=== PATIENT | male | born 1970 | race Caucasian/White ===

== ENCOUNTER 2017-07-28 08:16 | Inpatient (IN) | payer MEDICAID ==
[~2017-07-28] VITALS: Ht 170.2 cm; Wt 66.3 kg
[2017-07-28] VITALS (37 sets, daily range): BP systolic 71–163; BP diastolic 43–121
[~2017-07-28 08:16] MED LIST: ETOMIDATE 2MG/ML 10ML VIAL IV ONE; SUCCINYLCHOLINE CHLORIDE 200MG/10ML VIAL IV ONE
[2017-07-28] MEDS ORDERED: METO5TAB86 PO (08:24)
[2017-07-28] MEDS ORDERED: METO-396 PO (08:24)
[2017-07-28] MEDS ORDERED: KEPP500 PO (08:24)
[2017-07-28] MEDS ORDERED: LOV40 SQ (08:24)
[2017-07-28] MEDS ORDERED: ACETAMINOPHEN 325MG TABLET GT STA (08:32)
[2017-07-28] MEDS ORDERED: VANCOMYCIN 1 G PREMIX 200 ML IV SCH (08:45)
[2017-07-28] MEDS ORDERED: LEVETIRACETAM 500MG PREMIX 100 ML IV ONE (08:45)
[2017-07-28] MEDS ORDERED: LORAZEPAM 2MG/ML CPJ IV ONE ×3 (08:45→12:30)
[2017-07-28] MEDS ORDERED: SODIUM CHLORIDE 0.9% 1000ML BAG (SEPSIS BOLUS) IV ONE (08:45)
[2017-07-28] MEDS ORDERED: OSELTAMIVIR 75MG CAPSULE GT ONE (08:45)
[2017-07-28] MEDS ORDERED: LEVOFLOXACIN 750MG PREMIX 150 ML IV ONE (08:45)
[2017-07-28 09:03] LABS: BASOPHILS % 0.5 % (0.0-2.0); EOSINOPHILS % 0.3 % (0.0-5.0); HEMATOCRIT. 38.8 % (42.0-52.0); HEMOGLOBIN. 13.2 g/dL (14.0-18.0); LYMPHOCYTES % 9.8 % (20.0-50.0); MEAN CORPUSCULAR HEMOGLOBIN 31.4 pg (28.0-32.0); MEAN PLATELET VOLUME 8.3 fl (7.4-10.4); MONOCYTES % 7.3 % (2.0-8.0); NEUTROPHILS % 82.1 % (40.0-76.0); PLATELET 342 x1000/uL (130-400); RED BLOOD CELL COUNT 4.22 mill/uL (4.7-6.1); RED CELL DISTRIBUTION WIDTH 15.4 % (11.6-14.6)
[2017-07-28 09:16] LABS: INR 1.1; PARTIAL THROMBOPLASTIN TIME 29.8 sec (23.4-31.0); PROTHROMBIN TIME 11.4 sec (9.4-11.6)
[2017-07-28 09:20] LABS: CARBON DIOXIDE 25 mEq/L (21-32); CHLORIDE 106 mEq/L (98-107); TROPONIN I < 0.02 ng/mL (0.00-0.04)
[2017-07-28 09:30] LABS: CLARITY URINE CLEAR (CLEAR); COLOR URINE YELLOW (YELLOW); KETONES URINE NEGATIVE (NEGATIVE); LEUKOCYTE ESTERASE URINE NEGATIVE (NEGATIVE); NITRITE URINE NEGATIVE (NEGATIVE); OCCULT BLOOD URINE NEGATIVE (NEGATIVE); PROTEIN URINE NEGATIVE (NEGATIVE); SPECIFIC GRAVITY URINE 1.023 (1.005-1.030); UROBILINOGEN URINE 0.2 E.U./dL (0.2-1.0)
[2017-07-28 11:35] LABS: BG BASE EXCESS -4.8 mmol/L (-2.0-2.0); BG CARBOXYHEMOGLOBIN 0.5 % (0.5-1.5); BG DEOXYHEMOGLOBIN 8.4 % (0.0-5.0); BG HCO3 ACT 19.6 mmol/L (22.0-26.0); BG METHEMOGLOBIN 0.1 % (0.0-1.5); BG OXYGEN SATURATION 91.5 % (92.0-98.5); BG PCO2 34.4 mmHg (35.0-45.0); BG PH 7.373 (7.350-7.450); BG PO2 60.5 mmHg (75.0-100.0); BG SAMPLE SITE RIGHT RADIAL; BG TOTAL HEMOGLOBIN 13.5 g/dL (12.0-18.0); BG VENT MODE NASAL CANNULA
[2017-07-28] MEDS ORDERED: ETOMIDATE 2MG/ML 10ML VIAL IV ONE (13:00)
[2017-07-28] MEDS ORDERED: PROPOFOL 200MG/20ML VIAL IV ONE (13:00)
[2017-07-28] MEDS ORDERED: SUCCINYLCHOLINE CHLORIDE 200MG/10ML VIAL IV ONE (13:00)
[2017-07-28] MEDS ORDERED: PROPOFOL 10MG/ML 100ML 100 ML IV SCH (13:15)
[2017-07-28] MEDS ORDERED: METRONIDAZOLE 500 MG PREMIX 100 ML IV ONE (13:30)
[2017-07-28 14:04] LABS: BG BASE EXCESS -5.4 mmol/L (-2.0-2.0); BG CARBOXYHEMOGLOBIN 0.5 % (0.5-1.5); BG DEOXYHEMOGLOBIN 0.2 % (0.0-5.0); BG HCO3 ACT 18.3 mmol/L (22.0-26.0); BG METHEMOGLOBIN 0.3 % (0.0-1.5); BG OXYGEN SATURATION 99.8 % (92.0-98.5); BG PCO2 30.7 mmHg (35.0-45.0); BG PH 7.393 (7.350-7.450); BG PO2 437.3 mmHg (75.0-100.0); BG SAMPLE SITE RIGHT BRACHIAL; BG TIDAL VOLUME(mL) 500 mL; BG VENT MODE VENT - A/C; BG VENT RATE 14 set
[2017-07-28] MEDS ORDERED: PROPOFOL 10MG/ML 100ML 100 ML IV PRN (15:30)
[2017-07-28] MEDS ORDERED: IPRATROPIUM/ALBUTEROL 0.5-3(2.5)MG/3ML NEB HHN PRN ×2 (15:30→15:45)
[2017-07-28] MEDS ORDERED: LIDOCAINE HCL 1% 20ML VIAL (Pyxis) INJ ONE (15:52)
[2017-07-28] MEDS ORDERED: SODIUM BICARBONATE 4% (2.4MEQ) 5ML VIAL IV ONE (15:52)
[2017-07-28] MEDS ORDERED: PHENYTOIN SODIUM 1,000 MG in SODIUM CHLORIDE 0.9% 100 ML IV NR (16:00)
[2017-07-28] MEDS ORDERED: IPRATROPIUM/ALBUTEROL 0.5-3(2.5)MG/3ML NEB HHN SCH ×2 (16:00)
[2017-07-28 16:54] LABS: CREATINE KINASE 170 IU/L (39-308)
[2017-07-28 16:57] LABS: CARBAMAZEPINE < 0.5 ug/mL (4-12); VALPROIC ACID < 3.0 ug/mL (50-100)
[2017-07-28] MEDS ORDERED: DEXTROSE 50% WATER 50ML SYRINGE IV PRN (17:00)
[2017-07-28] MEDS ORDERED: NOREPINEPHRINE 8 MG in DEXT 5% WATER 242 ML IV PRN (17:00)
[2017-07-28] MEDS ORDERED: LEVOFLOXACIN 750MG PREMIX 150 ML IV SCH (17:00)
[2017-07-28] MEDS ORDERED: INSULIN LISPRO 100 UNITS/ML SUBCUT SCH (17:00)
[2017-07-28] MEDS ORDERED: IPRATROPIUM/ALBUTEROL 0.5-3(2.5)MG/3ML NEB INH PRN (17:00)
[2017-07-28] MEDS ORDERED: BLOOD SUGAR DIAGNOSTIC STRIP TEST SCH (17:00)
[2017-07-28] MEDS ORDERED: SODIUM CHLORIDE 0.9% 500 ML IV NR (17:15)
[2017-07-28] MEDS: DEXT 5%/0.45% NACL 1000ML 1,000 ML IV SCH (17:45)
[2017-07-28] MEDS: IPRATROPIUM/ALBUTEROL 0.5-3(2.5)MG/3ML NEB HHN SCH ×2 (19:54→23:48)
[2017-07-28] MEDS: LEVETIRACETAM 500MG PREMIX 100 ML IV SCH (20:26)
[2017-07-28] MEDS: PROPOFOL 10MG/ML 100ML 100 ML IV PRN (20:29)
[2017-07-28] MEDS ORDERED: VANCOMYCIN 1,750 MG in DEXT 5% WATER 250 ML IV NR (21:00)
[2017-07-28] MEDS: PHENYTOIN SODIUM 100MG/2ML VIAL IV SCH (22:45)
[2017-07-28] MEDS: BLOOD SUGAR DIAGNOSTIC STRIP TEST SCH (23:29)
[2017-07-28] MEDS: INSULIN LISPRO 100 UNITS/ML SUBCUT SCH (23:30)
[2017-07-28] MEDS: LORAZEPAM 2MG/ML CPJ IV PRN (23:49)
[2017-07-29] VITALS (93 sets, daily range): BP systolic 80–137; BP diastolic 54–89
[2017-07-29] MEDS: DEXT 5%/0.45% NACL 1000ML 1,000 ML IV SCH ×3 (03:24→23:56)
[2017-07-29] MEDS: IPRATROPIUM/ALBUTEROL 0.5-3(2.5)MG/3ML NEB HHN SCH ×6 (03:46→23:54)
[2017-07-29 05:36] LABS: CARBON DIOXIDE 19 mEq/L (21-32); CHLORIDE 111 mEq/L (98-107)
[2017-07-29 05:38] LABS: BASOPHILS % 0.2 % (0.0-2.0); EOSINOPHILS % 0.4 % (0.0-5.0); HEMATOCRIT. 31.1 % (42.0-52.0); HEMOGLOBIN. 11.1 g/dL (14.0-18.0); LYMPHOCYTES % 7.7 % (20.0-50.0); MEAN CORPUSCULAR VOLUME 92.5 fL (80.0-94.0); MEAN PLATELET VOLUME 8.8 fl (7.4-10.4); MONOCYTES % 4.9 % (2.0-8.0); NEUTROPHILS % 86.8 % (40.0-76.0); PLATELET 279 x1000/uL (130-400); RED BLOOD CELL COUNT 3.36 mill/uL (4.7-6.1)
[2017-07-29] MEDS: BLOOD SUGAR DIAGNOSTIC STRIP TEST SCH ×2 (05:48→12:14)
[2017-07-29] MEDS: PHENYTOIN SODIUM 100MG/2ML VIAL IV SCH ×3 (05:50→23:56)
[2017-07-29] MEDS: VANCOMYCIN 1250MG in DEXTROSE 5% WATER 250ML IV SCH ×3 (05:51→22:00)
[2017-07-29] MEDS: INSULIN LISPRO 100 UNITS/ML SUBCUT SCH ×2 (06:00→12:00)
[2017-07-29 08:55] LABS: BG BASE EXCESS -2.8 mmol/L (-2.0-2.0); BG CARBOXYHEMOGLOBIN 0.2 % (0.5-1.5); BG DEOXYHEMOGLOBIN 1.3 % (0.0-5.0); BG FRACTION INSPIRED OXYGEN 50; BG HCO3 ACT 21.5 mmol/L (22.0-26.0); BG METHEMOGLOBIN 0.1 % (0.0-1.5); BG OXYGEN SATURATION 98.7 % (92.0-98.5); BG OXYHEMOGLOBIN 98.4 % (94.0-97.0); BG PCO2 35.3 mmHg (35.0-45.0); BG PH 7.402 (7.350-7.450); BG PO2 136.4 mmHg (75.0-100.0); BG SAMPLE SITE RIGHT RADIAL; BG TIDAL VOLUME(mL) 500 mL; BG TOTAL HEMOGLOBIN 11.2 g/dL (12.0-18.0); BG VENT MODE VENT - A/C; BG VENT RATE 14 set
[2017-07-29] MEDS: LEVOFLOXACIN 750MG PREMIX 150 ML IV SCH (09:31)
[2017-07-29] MEDS: PANTOPRAZOLE SODIUM 40 MG/VIAL IV SCH (09:32)
[2017-07-29] MEDS: PROPOFOL 10MG/ML 100ML 100 ML IV PRN ×2 (09:32→19:55)
[2017-07-29] MEDS: LEVETIRACETAM 500MG PREMIX 100 ML IV SCH ×2 (09:33→20:25)
[2017-07-29] MEDS ORDERED: POTASSIUM CHLORIDE 20MEQ/PACKET GT NR (13:00)
[2017-07-30] VITALS (51 sets, daily range): BP systolic 92–164; BP diastolic 53–101
[2017-07-30] MEDS: BLOOD SUGAR DIAGNOSTIC STRIP TEST SCH ×4 (00:01→17:51)
[2017-07-30] MEDS: PROPOFOL 10MG/ML 100ML 100 ML IV PRN ×4 (02:13→21:53)
[2017-07-30 03:26] LABS: VANCOMYCIN TROUGH 42.5 ug/mL (5.0-10.0)
[2017-07-30] MEDS: IPRATROPIUM/ALBUTEROL 0.5-3(2.5)MG/3ML NEB HHN SCH ×5 (04:03→20:28)
[2017-07-30] MEDS: VANCOMYCIN 1250MG in DEXTROSE 5% WATER 250ML IV SCH (04:33)
[2017-07-30] MEDS: INSULIN LISPRO 100 UNITS/ML SUBCUT SCH ×4 (06:00→17:53)
[2017-07-30] MEDS: PHENYTOIN SODIUM 100MG/2ML VIAL IV SCH ×3 (06:58→22:45)
[2017-07-30] MEDS: LEVETIRACETAM 500MG PREMIX 100 ML IV SCH ×2 (07:39→20:22)
[2017-07-30] MEDS: PANTOPRAZOLE SODIUM 40 MG/VIAL IV SCH (08:39)
[2017-07-30] MEDS: LEVOFLOXACIN 750MG PREMIX 150 ML IV SCH (09:00)
[2017-07-30 09:15] LABS: BG BASE EXCESS -1.4 mmol/L (-2.0-2.0); BG CARBOXYHEMOGLOBIN 0.3 % (0.5-1.5); BG DEOXYHEMOGLOBIN 1.2 % (0.0-5.0); BG FRACTION INSPIRED OXYGEN 50; BG METHEMOGLOBIN 0.2 % (0.0-1.5); BG OXYGEN SATURATION 98.8 % (92.0-98.5); BG OXYHEMOGLOBIN 98.3 % (94.0-97.0); BG PCO2 37.6 mmHg (35.0-45.0); BG PH 7.405 (7.350-7.450); BG PO2 144.6 mmHg (75.0-100.0); BG SAMPLE SITE RIGHT RADIAL; BG TIDAL VOLUME(mL) 500 mL; BG TOTAL HEMOGLOBIN 11.4 g/dL (12.0-18.0); BG VENT MODE VENT - A/C; BG VENT RATE 14 set
[2017-07-30] MEDS ORDERED: PROPOFOL 10MG/ML 100ML 100 ML IV PRN (10:12)
[2017-07-30] MEDS: LORAZEPAM 2MG/ML CPJ IV PRN (10:22)
[2017-07-30] MEDS ORDERED: POTASSIUM CHLORIDE 20MEQ/PACKET GT NR (10:38)
[2017-07-30] MEDS: DEXT 5%/0.45% NACL 1000ML 1,000 ML IV SCH ×2 (10:44→20:22)
[2017-07-30] MEDS: METOCLOPRAMIDE 10MG/10 ML UDC GT SCH ×3 (12:19→23:10)
[2017-07-30] MEDS: DOCUSATE SODIUM SUGAR FREE 100MG/10ML UDC NG SCH (12:26)
[2017-07-30] MEDS: VANCOMYCIN 1 G PREMIX 200 ML IV SCH (23:10)
[2017-07-31] VITALS (24 sets, daily range): BP systolic 117–158; BP diastolic 75–100
[2017-07-31] MEDS: IPRATROPIUM/ALBUTEROL 0.5-3(2.5)MG/3ML NEB HHN SCH ×6 (00:22→21:08)
[2017-07-31] MEDS: PHENYTOIN SODIUM 100MG/2ML VIAL IV SCH ×3 (05:53→21:33)
[2017-07-31] MEDS: METOCLOPRAMIDE 10MG/10 ML UDC GT SCH ×4 (05:53→23:19)
[2017-07-31] MEDS: INSULIN LISPRO 100 UNITS/ML SUBCUT SCH ×4 (06:00→17:34)
[2017-07-31] MEDS: BLOOD SUGAR DIAGNOSTIC STRIP TEST SCH ×4 (06:36→17:33)
[2017-07-31] MEDS: PROPOFOL 10MG/ML 100ML 100 ML IV PRN ×3 (06:54→19:51)
[2017-07-31] MEDS: DEXT 5%/0.45% NACL 1000ML 1,000 ML IV SCH (07:03)
[2017-07-31] MEDS: PANTOPRAZOLE SODIUM 40 MG/VIAL IV SCH (08:12)
[2017-07-31] MEDS: LEVETIRACETAM 500MG PREMIX 100 ML IV SCH (08:12)
[2017-07-31] MEDS: DOCUSATE SODIUM SUGAR FREE 100MG/10ML UDC NG SCH (08:12)
[2017-07-31] MEDS: ACETAMINOPHEN 650MG/20.3ML UDC GT PRN (08:13)
[2017-07-31 08:36] LABS: BG BASE EXCESS -1.6 mmol/L (-2.0-2.0); BG CARBOXYHEMOGLOBIN 0.3 % (0.5-1.5); BG DEOXYHEMOGLOBIN 1.9 % (0.0-5.0); BG FRACTION INSPIRED OXYGEN 35; BG HCO3 ACT 21.2 mmol/L (22.0-26.0); BG METHEMOGLOBIN 0.3 % (0.0-1.5); BG OXYGEN SATURATION 98.1 % (92.0-98.5); BG OXYHEMOGLOBIN 97.5 % (94.0-97.0); BG PCO2 29.4 mmHg (35.0-45.0); BG PH 7.475 (7.350-7.450); BG PO2 101.6 mmHg (75.0-100.0); BG SAMPLE SITE RIGHT BRACHIAL; BG TIDAL VOLUME(mL) 500 mL; BG TOTAL HEMOGLOBIN 10.6 g/dL (12.0-18.0); BG VENT MODE VENT - A/C; BG VENT RATE 14 set
[2017-07-31] MEDS: LEVOFLOXACIN 750MG PREMIX 150 ML IV SCH (09:30)
[2017-07-31 10:10] LABS: BASOPHILS % 0.8 % (0.0-2.0); EOSINOPHILS % 4.5 % (0.0-5.0); HEMATOCRIT. 30.5 % (42.0-52.0); HEMOGLOBIN. 10.8 g/dL (14.0-18.0); LYMPHOCYTES % 13.6 % (20.0-50.0); MEAN CORPUSCULAR HEMOGLOBIN 32.9 pg (28.0-32.0); MEAN PLATELET VOLUME 9.9 fl (7.4-10.4); MONOCYTES % 6.8 % (2.0-8.0); NEUTROPHILS % 74.3 % (40.0-76.0); PLATELET 262 x1000/uL (130-400); RED BLOOD CELL COUNT 3.28 mill/uL (4.7-6.1); RED CELL DISTRIBUTION WIDTH 15.1 % (11.6-14.6)
[2017-07-31 10:30] LABS: CARBON DIOXIDE 20 mEq/L (21-32); CHLORIDE 113 mEq/L (98-107)
[2017-07-31] MEDS: LORAZEPAM 2MG/ML CPJ IV PRN (10:47)
[2017-07-31] MEDS: VANCOMYCIN 1 G PREMIX 200 ML IV SCH ×2 (12:42→23:14)
[2017-07-31 15:00] LABS: BG BASE EXCESS -1.4 mmol/L (-2.0-2.0); BG CARBOXYHEMOGLOBIN 0.3 % (0.5-1.5); BG DEOXYHEMOGLOBIN 1.9 % (0.0-5.0); BG FRACTION INSPIRED OXYGEN 30; BG METHEMOGLOBIN 0.3 % (0.0-1.5); BG OXYGEN SATURATION 98.1 % (92.0-98.5); BG OXYHEMOGLOBIN 97.5 % (94.0-97.0); BG PCO2 37.5 mmHg (35.0-45.0); BG PH 7.406 (7.350-7.450); BG PO2 117.3 mmHg (75.0-100.0); BG PRESSURE SUPPORT 15; BG SAMPLE SITE RIGHT BRACHIAL; BG TIDAL VOLUME(mL) 500 mL; BG TOTAL HEMOGLOBIN 10.8 g/dL (12.0-18.0); BG VENT MODE VENT - SIMV; BG VENT RATE 10 set
[2017-07-31] MEDS ORDERED: POTASSIUM CHLORIDE 20MEQ/PACKET GT NR (16:30)
[2017-07-31] MEDS: DEXT 5%/0.45% NACL KCL 40MEQ/L 1,000 ML IV SCH (18:29)
[2017-07-31] MEDS: LEVETIRACETAM 1000MG/100ML 100 ML IV SCH (19:51)
[2017-07-31] MEDS ORDERED: LEVETIRACETAM 500MG PREMIX 200 ML IV SCH (20:00)
[2017-07-31] MEDS: LAMOTRIGINE 100MG TABLET GT SCH (21:33)
[2017-07-31] MEDS: METOPROLOL TARTRATE 25MG TABLET GT SCH (21:34)
[2017-08-01] VITALS (37 sets, daily range): BP systolic 100–155; BP diastolic 62–99
[2017-08-01] MEDS: IPRATROPIUM/ALBUTEROL 0.5-3(2.5)MG/3ML NEB HHN SCH ×6 (00:51→23:51)
[2017-08-01] MEDS: PROPOFOL 10MG/ML 100ML 100 ML IV PRN ×5 (01:37→22:32)
[2017-08-01] MEDS: LORAZEPAM 2MG/ML CPJ IV PRN ×2 (03:44→21:20)
[2017-08-01] MEDS: METOCLOPRAMIDE 10MG/10 ML UDC GT SCH ×3 (04:54→17:13)
[2017-08-01] MEDS: PHENYTOIN SODIUM 100MG/2ML VIAL IV SCH ×3 (04:54→21:05)
[2017-08-01] MEDS: BLOOD SUGAR DIAGNOSTIC STRIP TEST SCH ×4 (07:00→17:01)
[2017-08-01] MEDS: INSULIN LISPRO 100 UNITS/ML SUBCUT SCH ×4 (07:00→17:01)
[2017-08-01 08:38] LABS: BG BASE EXCESS -0.7 mmol/L (-2.0-2.0); BG CARBOXYHEMOGLOBIN 0.1 % (0.5-1.5); BG DEOXYHEMOGLOBIN 2.4 % (0.0-5.0); BG FRACTION INSPIRED OXYGEN 30; BG HCO3 ACT 24.2 mmol/L (22.0-26.0); BG METHEMOGLOBIN 0.3 % (0.0-1.5); BG OXYGEN SATURATION 97.6 % (92.0-98.5); BG OXYHEMOGLOBIN 97.2 % (94.0-97.0); BG PH 7.389 (7.350-7.450); BG PO2 102.1 mmHg (75.0-100.0); BG PRESSURE SUPPORT 15; BG SAMPLE SITE RIGHT BRACHIAL; BG TIDAL VOLUME(mL) 500 mL; BG TOTAL HEMOGLOBIN 10.9 g/dL (12.0-18.0); BG VENT MODE VENT - SIMV; BG VENT RATE 10 set
[2017-08-01] MEDS: LEVETIRACETAM 1000MG/100ML 100 ML IV SCH ×2 (08:45→20:04)
[2017-08-01] MEDS: METOPROLOL TARTRATE 25MG TABLET GT SCH ×2 (09:00→20:07)
[2017-08-01] MEDS: LAMOTRIGINE 100MG TABLET GT SCH ×2 (09:04→20:07)
[2017-08-01] MEDS: DOCUSATE SODIUM SUGAR FREE 100MG/10ML UDC NG SCH ×2 (09:04→20:07)
[2017-08-01] MEDS: PANTOPRAZOLE SODIUM 40 MG/VIAL IV SCH (09:04)
[2017-08-01] MEDS: ACETAMINOPHEN 650MG/20.3ML UDC GT PRN ×2 (09:04→22:27)
[2017-08-01] MEDS: LEVOFLOXACIN 750MG PREMIX 150 ML IV SCH (09:14)
[2017-08-01] MEDS: VANCOMYCIN 1 G PREMIX 200 ML IV SCH (11:40)
[2017-08-01 11:45] LABS: CARBON DIOXIDE 23 mEq/L (21-32); CHLORIDE 112 mEq/L (98-107)
[2017-08-01] MEDS ORDERED: *TOBRAMYCIN PER PHARMACY XX SCH (13:00)
[2017-08-01] MEDS: DEXT 5%/0.45% NACL KCL 40MEQ/L 1,000 ML IV SCH (14:00)
[2017-08-01] MEDS ORDERED: TRIMETHOPRIM IV SCH (15:30)
[2017-08-01] MEDS ORDERED: WATER IV SCH (15:30)
[2017-08-01] MEDS ORDERED: DEXT 5% IV SCH (15:30)
[2017-08-01] MEDS ORDERED: SULFAMETHOXAZOLE IV SCH (15:30)
[2017-08-01] MEDS: TOBRAMYCIN SULFATE 140 MG in SODIUM CHLORIDE 0.9% 100 ML IV SCH (15:34)
[2017-08-01] MEDS: DEXT 5%/0.45% NACL 1000ML 1,000 ML IV SCH (20:03)
[2017-08-01] MEDS: ONDANSETRON HCL 4MG/2ML VIAL IV PRN (22:28)
[2017-08-02] VITALS (59 sets, daily range): BP systolic 86–131; BP diastolic 51–91
[2017-08-02] MEDS: BLOOD SUGAR DIAGNOSTIC STRIP TEST SCH ×4 (00:59→17:07)
[2017-08-02] MEDS: METOCLOPRAMIDE 10MG/10 ML UDC GT SCH ×4 (00:59→17:44)
[2017-08-02] MEDS: VANCOMYCIN 1 G PREMIX 200 ML IV SCH (00:59)
[2017-08-02] MEDS: PROPOFOL 10MG/ML 100ML 100 ML IV PRN ×4 (02:58→17:44)
[2017-08-02] MEDS: TOBRAMYCIN SULFATE 140 MG in SODIUM CHLORIDE 0.9% 100 ML IV SCH ×2 (02:59→14:55)
[2017-08-02] MEDS: IPRATROPIUM/ALBUTEROL 0.5-3(2.5)MG/3ML NEB HHN SCH ×6 (03:54→23:46)
[2017-08-02] MEDS: PHENYTOIN SODIUM 100MG/2ML VIAL IV SCH (04:59)
[2017-08-02] MEDS: INSULIN LISPRO 100 UNITS/ML SUBCUT SCH ×4 (06:00→17:07)
[2017-08-02] MEDS: LEVOFLOXACIN 750MG PREMIX 150 ML IV SCH (08:23)
[2017-08-02] MEDS: PANTOPRAZOLE SODIUM 40 MG/VIAL IV SCH (08:23)
[2017-08-02] MEDS: LEVETIRACETAM 1000MG/100ML 100 ML IV SCH (08:23)
[2017-08-02] MEDS: LAMOTRIGINE 100MG TABLET GT SCH ×2 (08:24→20:06)
[2017-08-02] MEDS: METOPROLOL TARTRATE 25MG TABLET GT SCH ×2 (08:24→20:06)
[2017-08-02] MEDS: DOCUSATE SODIUM SUGAR FREE 100MG/10ML UDC NG SCH ×2 (08:24→20:07)
[2017-08-02 11:00] LABS: BG BASE EXCESS -1.1 mmol/L (-2.0-2.0); BG CARBOXYHEMOGLOBIN 0.3 % (0.5-1.5); BG FRACTION INSPIRED OXYGEN 30; BG HCO3 ACT 24.2 mmol/L (22.0-26.0); BG METHEMOGLOBIN 0.3 % (0.0-1.5); BG OXYHEMOGLOBIN 91.4 % (94.0-97.0); BG PCO2 42.7 mmHg (35.0-45.0); BG PH 7.371 (7.350-7.450); BG PO2 63.5 mmHg (75.0-100.0); BG PRESSURE SUPPORT 15; BG SAMPLE SITE LEFT BRACHIAL; BG TIDAL VOLUME(mL) 500 mL; BG TOTAL HEMOGLOBIN 11.2 g/dL (12.0-18.0); BG VENT MODE VENT - SIMV; BG VENT RATE 8 set
[2017-08-02] MEDS: DEXT 5%/0.45% NACL 1000ML 1,000 ML IV SCH (14:55)
[2017-08-02] MEDS: VANCOMYCIN 750 MG PREMIX 150 ML IV SCH (16:06)
[2017-08-02] MEDS: LEVETIRACETAM 500MG/5ML CUP PO SCH (20:07)
[2017-08-02] MEDS: PHENYTOIN 100 MG/4 ML UDC NG SCH (21:18)
[2017-08-03] VITALS (62 sets, daily range): BP systolic 99–147; BP diastolic 57–98
[2017-08-03] MEDS: PROPOFOL 10MG/ML 100ML 100 ML IV PRN ×2 (00:19→04:51)
[2017-08-03] MEDS: METOCLOPRAMIDE 10MG/10 ML UDC GT SCH ×5 (00:26→23:38)
[2017-08-03] MEDS: BLOOD SUGAR DIAGNOSTIC STRIP TEST SCH ×5 (00:29→23:43)
[2017-08-03] MEDS: TOBRAMYCIN SULFATE 140 MG in SODIUM CHLORIDE 0.9% 100 ML IV SCH (02:28)
[2017-08-03] MEDS: IPRATROPIUM/ALBUTEROL 0.5-3(2.5)MG/3ML NEB HHN SCH ×5 (03:41→19:58)
[2017-08-03] MEDS: VANCOMYCIN 750 MG PREMIX 150 ML IV SCH ×2 (04:51→16:05)
[2017-08-03] MEDS: INSULIN LISPRO 100 UNITS/ML SUBCUT SCH ×5 (05:12→23:43)
[2017-08-03 06:17] LABS: TOBRAMYCIN PEAK 6.2 ucg/mL (4.0-8.0)
[2017-08-03 07:44] LABS: BG BASE EXCESS -0.3 mmol/L (-2.0-2.0); BG CARBOXYHEMOGLOBIN 0.3 % (0.5-1.5); BG DEOXYHEMOGLOBIN 3.2 % (0.0-5.0); BG HCO3 ACT 24.4 mmol/L (22.0-26.0); BG METHEMOGLOBIN 0.2 % (0.0-1.5); BG OXYGEN SATURATION 96.8 % (92.0-98.5); BG OXYHEMOGLOBIN 96.3 % (94.0-97.0); BG PCO2 40.1 mmHg (35.0-45.0); BG PH 7.402 (7.350-7.450); BG PO2 89.4 mmHg (75.0-100.0); BG SAMPLE SITE RIGHT RADIAL; BG TIDAL VOLUME(mL) 500 mL; BG TOTAL HEMOGLOBIN 10.8 g/dL (12.0-18.0); BG VENT MODE VENT - SIMV; BG VENT RATE 8 set
[2017-08-03] MEDS: PANTOPRAZOLE SODIUM 40 MG/VIAL IV SCH (08:30)
[2017-08-03] MEDS: LAMOTRIGINE 100MG TABLET GT SCH ×2 (08:31→20:09)
[2017-08-03] MEDS: METOPROLOL TARTRATE 25MG TABLET GT SCH ×2 (08:31→20:10)
[2017-08-03] MEDS: LEVOFLOXACIN 750MG PREMIX 150 ML IV SCH (08:31)
[2017-08-03] MEDS: DOCUSATE SODIUM SUGAR FREE 100MG/10ML UDC NG SCH ×2 (08:31→20:09)
[2017-08-03] MEDS: LEVETIRACETAM 500MG/5ML CUP PO SCH ×2 (08:34→20:10)
[2017-08-03] MEDS: MORPHINE SULFATE 4 MG/ML CPJ (NOT FOR IM USE) IV PRN ×3 (09:00→20:11)
[2017-08-03] MEDS: DEXT 5%/0.45% NACL 1000ML 1,000 ML IV SCH (12:04)
[2017-08-03] MEDS: SODIUM CHLORIDE 0.9% IV SCH (15:14)
[2017-08-03] MEDS: TOBRAMYCIN SULFATE IV SCH (15:14)
[2017-08-03] MEDS: PHENYTOIN 100 MG/4 ML UDC NG SCH (21:17)
[2017-08-03] MEDS: ONDANSETRON HCL 4MG/2ML VIAL IV PRN (22:24)
[2017-08-04] VITALS (49 sets, daily range): BP systolic 87–169; BP diastolic 46–118
[2017-08-04] MEDS: IPRATROPIUM/ALBUTEROL 0.5-3(2.5)MG/3ML NEB HHN SCH ×6 (00:15→19:50)
[2017-08-04] MEDS: LORAZEPAM 2MG/ML CPJ IV PRN ×2 (01:11→15:42)
[2017-08-04] MEDS ORDERED: PHENYTOIN SODIUM 500 MG in SODIUM CHLORIDE 0.9% 50 ML IV SCH (02:00)
[2017-08-04] MEDS: MORPHINE SULFATE 4 MG/ML CPJ (NOT FOR IM USE) IV PRN ×3 (03:34→13:07)
[2017-08-04] MEDS: VANCOMYCIN 750 MG PREMIX 150 ML IV SCH ×2 (03:36→15:16)
[2017-08-04] MEDS: PHENYTOIN 100 MG/4 ML UDC GT SCH ×3 (05:12→21:11)
[2017-08-04] MEDS: INSULIN LISPRO 100 UNITS/ML SUBCUT SCH ×4 (05:16→23:13)
[2017-08-04] MEDS: BLOOD SUGAR DIAGNOSTIC STRIP TEST SCH ×4 (05:16→23:10)
[2017-08-04] MEDS: METOCLOPRAMIDE 10MG/10 ML UDC GT SCH ×4 (06:01→23:34)
[2017-08-04 07:28] LABS: BG BASE EXCESS 3.5 mmol/L (-2.0-2.0); BG CARBOXYHEMOGLOBIN 0.7 % (0.5-1.5); BG DEOXYHEMOGLOBIN 2.3 % (0.0-5.0); BG HCO3 ACT 29.4 mmol/L (22.0-26.0); BG METHEMOGLOBIN 0.3 % (0.0-1.5); BG OXYGEN SATURATION 97.7 % (92.0-98.5); BG OXYHEMOGLOBIN 96.7 % (94.0-97.0); BG PCO2 49.4 mmHg (35.0-45.0); BG PH 7.392 (7.350-7.450); BG PO2 99.1 mmHg (75.0-100.0); BG SAMPLE SITE RIGHT RADIAL; BG TIDAL VOLUME(mL) 500 mL; BG TOTAL HEMOGLOBIN 13.5 g/dL (12.0-18.0); BG VENT MODE VENT - SIMV; BG VENT RATE 6 set
[2017-08-04] MEDS: PANTOPRAZOLE SODIUM 40 MG/VIAL IV SCH (08:46)
[2017-08-04] MEDS: LEVETIRACETAM 500MG/5ML CUP PO SCH ×2 (08:46→21:11)
[2017-08-04] MEDS: DOCUSATE SODIUM SUGAR FREE 100MG/10ML UDC NG SCH ×2 (08:46→21:11)
[2017-08-04] MEDS: LAMOTRIGINE 100MG TABLET GT SCH ×2 (08:47→21:10)
[2017-08-04] MEDS: METOPROLOL TARTRATE 25MG TABLET GT SCH (08:48)
[2017-08-04] MEDS: LEVOFLOXACIN 750MG PREMIX 150 ML IV SCH (08:48)
[2017-08-04] MEDS: SODIUM CHLORIDE 0.9% IV SCH (10:34)
[2017-08-04] MEDS: TOBRAMYCIN SULFATE IV SCH (10:34)
[2017-08-04] MEDS: ENOXAPARIN 40MG/0.4ML SYR SUBCUT SCH (10:35)
[2017-08-04 10:46] LABS: BG BASE EXCESS 2.8 mmol/L (-2.0-2.0); BG CPAP (cmH2O) 0 cm(H2O); BG HCO3 ACT 29.6 mmol/L (22.0-26.0); BG METHEMOGLOBIN 0.2 % (0.0-1.5); BG OXYHEMOGLOBIN 97.8 % (94.0-97.0); BG PH 7.334 (7.350-7.450); BG PO2 111.6 mmHg (75.0-100.0); BG SAMPLE SITE RIGHT RADIAL; BG TOTAL HEMOGLOBIN 11.1 g/dL (12.0-18.0); BG VENT MODE VENT - CPAP
[2017-08-04] MEDS ORDERED: PHENYTOIN 100 MG/4 ML UDC NG NR (11:00)
[2017-08-04] MEDS ORDERED: SENNOSIDES 8.6MG TABLET PO PRN (11:30)
[2017-08-04] MEDS: ACETAMINOPHEN 650MG/20.3ML UDC GT PRN (15:34)
[2017-08-04] MEDS: DEXT 5%/0.45% NACL 1000ML 1,000 ML IV SCH (18:10)
[2017-08-04] MEDS: METOPROLOL TARTRATE 50MG TABLET GT SCH (21:10)
[2017-08-05] VITALS (25 sets, daily range): BP systolic 95–146; BP diastolic 56–111
[2017-08-05] MEDS: IPRATROPIUM/ALBUTEROL 0.5-3(2.5)MG/3ML NEB HHN SCH ×5 (00:10→20:25)
[2017-08-05] MEDS: TOBRAMYCIN SULFATE IV SCH ×2 (04:09→23:18)
[2017-08-05] MEDS: SODIUM CHLORIDE 0.9% IV SCH ×2 (04:09→23:18)
[2017-08-05 05:40] LABS: CARBON DIOXIDE 32 mEq/L (21-32); CHLORIDE 105 mEq/L (98-107)
[2017-08-05] MEDS: BLOOD SUGAR DIAGNOSTIC STRIP TEST SCH ×4 (05:42→23:19)
[2017-08-05] MEDS: INSULIN LISPRO 100 UNITS/ML SUBCUT SCH ×4 (06:00→23:27)
[2017-08-05] MEDS: PHENYTOIN 100 MG/4 ML UDC GT SCH ×3 (06:23→23:03)
[2017-08-05] MEDS: METOCLOPRAMIDE 10MG/10 ML UDC GT SCH ×4 (06:26→23:18)
[2017-08-05 07:36] LABS: HEMATOCRIT. 33.2 % (42.0-52.0); HEMOGLOBIN. 11.2 g/dL (14.0-18.0); MEAN CORPUSCULAR HEMOGLOBIN 30.2 pg (28.0-32.0); MEAN CORPUSCULAR VOLUME 89.7 fL (80.0-94.0); MEAN PLATELET VOLUME 7.6 fl (7.4-10.4); PLATELET 301 x1000/uL (130-400); RED CELL DISTRIBUTION WIDTH 14.5 % (11.6-14.6)
[2017-08-05 08:10] LABS: PLATELET ESTIMATE NORMAL
[2017-08-05] MEDS: LEVETIRACETAM 500MG/5ML CUP PO SCH ×2 (09:06→21:27)
[2017-08-05] MEDS: PANTOPRAZOLE SODIUM 40 MG/VIAL IV SCH (09:06)
[2017-08-05] MEDS: DOCUSATE SODIUM SUGAR FREE 100MG/10ML UDC NG SCH ×2 (09:06→21:27)
[2017-08-05] MEDS: LEVOFLOXACIN 750MG PREMIX 150 ML IV SCH (09:06)
[2017-08-05] MEDS: ENOXAPARIN 40MG/0.4ML SYR SUBCUT SCH (09:07)
[2017-08-05] MEDS: LAMOTRIGINE 100MG TABLET GT SCH ×2 (09:07→21:27)
[2017-08-05] MEDS: METOPROLOL TARTRATE 50MG TABLET GT SCH ×2 (09:07→21:00)
[2017-08-05] MEDS: DEXT 5%/0.45% NACL 1000ML 1,000 ML IV SCH (16:56)
[2017-08-06] VITALS (11 sets, daily range): BP systolic 93–132; BP diastolic 45–80
[2017-08-06] MEDS: IPRATROPIUM/ALBUTEROL 0.5-3(2.5)MG/3ML NEB HHN SCH ×7 (00:02→23:53)
[2017-08-06] MEDS: METOCLOPRAMIDE 10MG/10 ML UDC GT SCH ×4 (05:09→23:54)
[2017-08-06] MEDS: BLOOD SUGAR DIAGNOSTIC STRIP TEST SCH ×4 (05:09→23:54)
[2017-08-06] MEDS: PHENYTOIN 100 MG/4 ML UDC GT SCH ×3 (05:09→21:38)
[2017-08-06] MEDS: DOCUSATE SODIUM SUGAR FREE 100MG/10ML UDC NG SCH ×2 (08:38→21:00)
[2017-08-06] MEDS: PANTOPRAZOLE SODIUM 40 MG/VIAL IV SCH (08:38)
[2017-08-06] MEDS: LEVETIRACETAM 500MG/5ML CUP PO SCH (08:38)
[2017-08-06] MEDS: METOPROLOL TARTRATE 50MG TABLET GT SCH ×2 (08:40→21:00)
[2017-08-06] MEDS: LAMOTRIGINE 100MG TABLET GT SCH ×2 (08:43→21:29)
[2017-08-06] MEDS: ENOXAPARIN 40MG/0.4ML SYR SUBCUT SCH (11:00)
[2017-08-06] MEDS: INSULIN LISPRO 100 UNITS/ML SUBCUT SCH ×3 (11:10→17:29)
[2017-08-06] MEDS: SODIUM CHLORIDE 0.9% IV SCH (16:18)
[2017-08-06] MEDS: TOBRAMYCIN SULFATE IV SCH (16:18)
[2017-08-06] MEDS: FAMOTIDINE 20MG TABLET GT SCH (21:29)
[2017-08-06] MEDS: LEVETIRACETAM 500MG/5ML CUP GT SCH (21:29)
[2017-08-07] VITALS (11 sets, daily range): BP systolic 103–135; BP diastolic 56–81
[2017-08-07] MEDS: IPRATROPIUM/ALBUTEROL 0.5-3(2.5)MG/3ML NEB HHN SCH ×5 (04:20→20:13)
[2017-08-07] MEDS: PHENYTOIN 100 MG/4 ML UDC GT SCH ×3 (05:38→21:17)
[2017-08-07] MEDS: METOCLOPRAMIDE 10MG/10 ML UDC GT SCH ×4 (05:38→23:58)
[2017-08-07] MEDS: INSULIN LISPRO 100 UNITS/ML SUBCUT SCH ×5 (05:57→23:33)
[2017-08-07] MEDS: BLOOD SUGAR DIAGNOSTIC STRIP TEST SCH ×4 (05:57→23:33)
[2017-08-07] MEDS: DOCUSATE SODIUM SUGAR FREE 100MG/10ML UDC NG SCH ×2 (08:34→21:18)
[2017-08-07] MEDS: TOBRAMYCIN SULFATE IV SCH (09:09)
[2017-08-07] MEDS: SODIUM CHLORIDE 0.9% IV SCH (09:09)
[2017-08-07] MEDS: LEVETIRACETAM 500MG/5ML CUP GT SCH ×2 (09:10→21:17)
[2017-08-07] MEDS: LAMOTRIGINE 100MG TABLET GT SCH ×2 (09:10→21:16)
[2017-08-07] MEDS: ENOXAPARIN 40MG/0.4ML SYR SUBCUT SCH (09:10)
[2017-08-07] MEDS: METOPROLOL TARTRATE 50MG TABLET GT SCH ×2 (09:11→21:17)
[2017-08-07] MEDS: ACETAMINOPHEN 650MG/20.3ML UDC GT PRN (16:16)
[2017-08-07] MEDS: FAMOTIDINE 20MG TABLET GT SCH (21:16)
[2017-08-08] VITALS (17 sets, daily range): BP systolic 97–125; BP diastolic 61–74
[2017-08-08] MEDS: IPRATROPIUM/ALBUTEROL 0.5-3(2.5)MG/3ML NEB HHN SCH ×6 (00:10→21:08)
[2017-08-08] MEDS: TOBRAMYCIN SULFATE IV SCH ×2 (04:06→21:13)
[2017-08-08] MEDS: SODIUM CHLORIDE 0.9% IV SCH ×2 (04:06→21:13)
[2017-08-08] MEDS: INSULIN LISPRO 100 UNITS/ML SUBCUT SCH ×4 (06:00→23:53)
[2017-08-08] MEDS: ACETAMINOPHEN 650MG/20.3ML UDC GT PRN (06:07)
[2017-08-08] MEDS: METOCLOPRAMIDE 10MG/10 ML UDC GT SCH ×3 (06:07→17:34)
[2017-08-08] MEDS: PHENYTOIN 100 MG/4 ML UDC GT SCH ×3 (06:07→21:15)
[2017-08-08] MEDS: BLOOD SUGAR DIAGNOSTIC STRIP TEST SCH ×4 (06:26→23:53)
[2017-08-08 07:03] LABS: BASOPHILS % 0.6 % (0.0-2.0); EOSINOPHILS % 3.8 % (0.0-5.0); HEMATOCRIT. 32.1 % (42.0-52.0); HEMOGLOBIN. 11.4 g/dL (14.0-18.0); LYMPHOCYTES % 18.2 % (20.0-50.0); MEAN CORPUSCULAR HEMOGLOBIN 32.1 pg (28.0-32.0); MEAN CORPUSCULAR VOLUME 90.6 fL (80.0-94.0); MEAN PLATELET VOLUME 7.3 fl (7.4-10.4); MONOCYTES % 6.2 % (2.0-8.0); NEUTROPHILS % 71.2 % (40.0-76.0); PLATELET 275 x1000/uL (130-400); RED BLOOD CELL COUNT 3.55 mill/uL (4.7-6.1); RED CELL DISTRIBUTION WIDTH 13.8 % (11.6-14.6)
[2017-08-08 07:59] LABS: CARBON DIOXIDE 32 mEq/L (21-32); CHLORIDE 107 mEq/L (98-107)
[2017-08-08] MEDS: METOPROLOL TARTRATE 50MG TABLET GT SCH ×2 (08:50→21:15)
[2017-08-08] MEDS ORDERED: POTASSIUM CHLORIDE 20MEQ/PACKET GT NR (09:40)
[2017-08-08] MEDS: LAMOTRIGINE 100MG TABLET GT SCH ×2 (09:43→21:13)
[2017-08-08] MEDS: DOCUSATE SODIUM SUGAR FREE 100MG/10ML UDC NG SCH ×2 (09:43→21:13)
[2017-08-08] MEDS: LEVETIRACETAM 500MG/5ML CUP GT SCH ×2 (09:44→21:13)
[2017-08-08] MEDS: ENOXAPARIN 40MG/0.4ML SYR SUBCUT SCH (09:44)
[2017-08-08] MEDS ORDERED: POTASSIUM CHLORIDE 20MEQ/PACKET PO NR (13:40)
[2017-08-08] MEDS: FAMOTIDINE 20MG TABLET GT SCH (21:15)
[2017-08-09] VITALS (12 sets, daily range): BP systolic 99–117; BP diastolic 53–71
[2017-08-09] MEDS: ACETAMINOPHEN 650MG/20.3ML UDC GT PRN (00:38)
[2017-08-09] MEDS: IPRATROPIUM/ALBUTEROL 0.5-3(2.5)MG/3ML NEB HHN SCH ×6 (00:48→20:26)
[2017-08-09] MEDS: METOCLOPRAMIDE 10MG/10 ML UDC GT SCH ×4 (05:23→17:29)
[2017-08-09] MEDS: BLOOD SUGAR DIAGNOSTIC STRIP TEST SCH ×3 (06:00→17:26)
[2017-08-09] MEDS: INSULIN LISPRO 100 UNITS/ML SUBCUT SCH ×3 (06:00→17:29)
[2017-08-09] MEDS: PHENYTOIN 100 MG/4 ML UDC GT SCH ×3 (06:10→21:03)
[2017-08-09] MEDS: LEVETIRACETAM 500MG/5ML CUP GT SCH ×2 (08:58→20:59)
[2017-08-09] MEDS: DOCUSATE SODIUM SUGAR FREE 100MG/10ML UDC NG SCH ×2 (08:58→20:59)
[2017-08-09] MEDS: LAMOTRIGINE 100MG TABLET GT SCH ×2 (08:59→21:00)
[2017-08-09] MEDS: METOPROLOL TARTRATE 50MG TABLET GT SCH ×2 (09:00→21:00)
[2017-08-09] MEDS: ENOXAPARIN 40MG/0.4ML SYR SUBCUT SCH (09:01)
[2017-08-09] MEDS: FAMOTIDINE 20MG TABLET GT SCH (20:59)
[2017-08-10] VITALS (17 sets, daily range): BP systolic 101–127; BP diastolic 61–78
[2017-08-10] MEDS: IPRATROPIUM/ALBUTEROL 0.5-3(2.5)MG/3ML NEB HHN SCH ×6 (00:16→20:13)
[2017-08-10] MEDS: METOCLOPRAMIDE 10MG/10 ML UDC GT SCH ×5 (00:19→23:08)
[2017-08-10] MEDS: INSULIN LISPRO 100 UNITS/ML SUBCUT SCH ×4 (05:22→18:00)
[2017-08-10] MEDS: BLOOD SUGAR DIAGNOSTIC STRIP TEST SCH ×4 (05:22→18:03)
[2017-08-10] MEDS: PHENYTOIN 100 MG/4 ML UDC GT SCH ×3 (05:23→21:03)
[2017-08-10] MEDS: METOPROLOL TARTRATE 50MG TABLET GT SCH ×2 (08:53→20:55)
[2017-08-10] MEDS: DOCUSATE SODIUM SUGAR FREE 100MG/10ML UDC NG SCH ×2 (08:53→20:55)
[2017-08-10] MEDS: LAMOTRIGINE 100MG TABLET GT SCH ×2 (08:53→20:56)
[2017-08-10] MEDS: LEVETIRACETAM 500MG/5ML CUP GT SCH ×2 (08:53→20:55)
[2017-08-10] MEDS: ENOXAPARIN 40MG/0.4ML SYR SUBCUT SCH (08:54)
[2017-08-10] MEDS: FAMOTIDINE 20MG TABLET GT SCH (20:55)
[2017-08-11] VITALS (11 sets, daily range): BP systolic 99–134; BP diastolic 56–98
[2017-08-11] MEDS: IPRATROPIUM/ALBUTEROL 0.5-3(2.5)MG/3ML NEB HHN SCH ×6 (00:17→20:34)
[2017-08-11] MEDS: PHENYTOIN 100 MG/4 ML UDC GT SCH ×3 (05:22→20:58)
[2017-08-11] MEDS: METOCLOPRAMIDE 10MG/10 ML UDC GT SCH ×3 (05:22→18:22)
[2017-08-11] MEDS: BLOOD SUGAR DIAGNOSTIC STRIP TEST SCH ×4 (05:23→17:20)
[2017-08-11] MEDS: INSULIN LISPRO 100 UNITS/ML SUBCUT SCH ×4 (05:28→18:00)
[2017-08-11] MEDS: METOPROLOL TARTRATE 50MG TABLET GT SCH ×2 (09:15→20:57)
[2017-08-11] MEDS: ENOXAPARIN 40MG/0.4ML SYR SUBCUT SCH (09:15)
[2017-08-11] MEDS: LAMOTRIGINE 100MG TABLET GT SCH ×2 (09:15→20:57)
[2017-08-11] MEDS: DOCUSATE SODIUM SUGAR FREE 100MG/10ML UDC NG SCH ×2 (09:16→20:56)
[2017-08-11] MEDS: LEVETIRACETAM 500MG/5ML CUP GT SCH ×2 (09:16→20:58)
[2017-08-11] MEDS: FAMOTIDINE 20MG TABLET GT SCH (20:57)
[2017-08-12] VITALS: BP 100/65
[2017-08-12] MEDS: BLOOD SUGAR DIAGNOSTIC STRIP TEST SCH ×4 (00:03→17:15)
[2017-08-12] MEDS: METOCLOPRAMIDE 10MG/10 ML UDC GT SCH ×4 (00:05→17:15)
[2017-08-12] MEDS: IPRATROPIUM/ALBUTEROL 0.5-3(2.5)MG/3ML NEB HHN SCH ×6 (00:46→21:21)
[2017-08-12 04:00] VITALS: BP 115/67
[2017-08-12] MEDS: PHENYTOIN 100 MG/4 ML UDC GT SCH ×3 (05:41→21:35)
[2017-08-12] MEDS: INSULIN LISPRO 100 UNITS/ML SUBCUT SCH ×4 (05:44→17:20)
[2017-08-12 08:00] VITALS: BP 118/73
[2017-08-12] MEDS: LEVETIRACETAM 500MG/5ML CUP GT SCH ×2 (11:16→21:38)
[2017-08-12] MEDS: ENOXAPARIN 40MG/0.4ML SYR SUBCUT SCH (11:17)
[2017-08-12] MEDS: DOCUSATE SODIUM SUGAR FREE 100MG/10ML UDC NG SCH ×2 (11:17→21:35)
[2017-08-12] MEDS: METOPROLOL TARTRATE 50MG TABLET GT SCH ×2 (11:18→21:00)
[2017-08-12] MEDS: LAMOTRIGINE 100MG TABLET GT SCH ×2 (11:18→21:36)
[2017-08-12 12:00] VITALS: BP 135/91
[2017-08-12 16:00] VITALS: BP 97/52
[2017-08-12 17:39] LABS: CARBON DIOXIDE 28 mEq/L (21-32); CHLORIDE 112 mEq/L (98-107)
[2017-08-12 20:00] VITALS: BP 104/65
[2017-08-12] MEDS: FAMOTIDINE 20MG TABLET GT SCH (21:36)
[2017-08-13] VITALS: BP 99/59
[2017-08-13] MEDS: METOCLOPRAMIDE 10MG/10 ML UDC GT SCH ×4 (00:22→17:41)
[2017-08-13] MEDS: BLOOD SUGAR DIAGNOSTIC STRIP TEST SCH ×4 (00:23→17:41)
[2017-08-13] MEDS: IPRATROPIUM/ALBUTEROL 0.5-3(2.5)MG/3ML NEB HHN SCH ×5 (02:45→20:09)
[2017-08-13 04:00] VITALS: BP 113/67
[2017-08-13] MEDS: PHENYTOIN 100 MG/4 ML UDC GT SCH ×3 (05:09→22:11)
[2017-08-13] MEDS: INSULIN LISPRO 100 UNITS/ML SUBCUT SCH ×4 (06:00→17:41)
[2017-08-13 08:00] VITALS: BP 100/56
[2017-08-13] MEDS: METOPROLOL TARTRATE 50MG TABLET GT SCH ×2 (09:00→21:11)
[2017-08-13] MEDS: LEVETIRACETAM 500MG/5ML CUP GT SCH ×2 (11:32→21:09)
[2017-08-13] MEDS: DOCUSATE SODIUM SUGAR FREE 100MG/10ML UDC NG SCH ×2 (11:32→21:09)
[2017-08-13] MEDS: ENOXAPARIN 40MG/0.4ML SYR SUBCUT SCH (11:32)
[2017-08-13] MEDS: LAMOTRIGINE 100MG TABLET GT SCH ×2 (11:34→21:09)
[2017-08-13 12:00] VITALS: BP 105/59
[2017-08-13 16:00] VITALS: BP 100/65
[2017-08-13 20:00] VITALS: BP 104/65
[2017-08-13] MEDS: FAMOTIDINE 20MG TABLET GT SCH (21:10)
[2017-08-14] VITALS: BP 97/66
[2017-08-14] MEDS: METOCLOPRAMIDE 10MG/10 ML UDC GT SCH ×5 (00:08→23:08)
[2017-08-14] MEDS: ACETAMINOPHEN 650MG/20.3ML UDC GT PRN (00:09)
[2017-08-14] MEDS: BLOOD SUGAR DIAGNOSTIC STRIP TEST SCH ×5 (00:09→23:08)
[2017-08-14] MEDS: IPRATROPIUM/ALBUTEROL 0.5-3(2.5)MG/3ML NEB HHN SCH ×7 (00:21→23:50)
[2017-08-14 04:00] VITALS: BP 111/63
[2017-08-14] MEDS: PHENYTOIN 100 MG/4 ML UDC GT SCH ×3 (05:50→21:02)
[2017-08-14] MEDS: INSULIN LISPRO 100 UNITS/ML SUBCUT SCH ×5 (05:55→23:08)
[2017-08-14 08:00] VITALS: BP 130/82
[2017-08-14] MEDS: ENOXAPARIN 40MG/0.4ML SYR SUBCUT SCH (09:14)
[2017-08-14] MEDS: LEVETIRACETAM 500MG/5ML CUP GT SCH ×2 (09:14→20:38)
[2017-08-14] MEDS: DOCUSATE SODIUM SUGAR FREE 100MG/10ML UDC NG SCH ×2 (09:15→20:38)
[2017-08-14] MEDS: LAMOTRIGINE 100MG TABLET GT SCH ×2 (09:15→20:38)
[2017-08-14] MEDS: METOPROLOL TARTRATE 50MG TABLET GT SCH ×2 (09:15→20:33)
[2017-08-14 12:00] VITALS: BP 114/71
[2017-08-14 16:00] VITALS: BP 100/59
[2017-08-14 20:00] VITALS: BP 99/60
[2017-08-14] MEDS: FAMOTIDINE 20MG TABLET GT SCH (20:39)
[2017-08-15] VITALS: BP 102/67
[2017-08-15] MEDS: IPRATROPIUM/ALBUTEROL 0.5-3(2.5)MG/3ML NEB HHN SCH ×5 (04:12→20:38)
[2017-08-15] MEDS: INSULIN LISPRO 100 UNITS/ML SUBCUT SCH ×4 (06:00→23:37)
[2017-08-15] MEDS: PHENYTOIN 100 MG/4 ML UDC GT SCH ×3 (06:42→21:05)
[2017-08-15] MEDS: BLOOD SUGAR DIAGNOSTIC STRIP TEST SCH ×4 (06:42→23:37)
[2017-08-15] MEDS: METOCLOPRAMIDE 10MG/10 ML UDC GT SCH ×4 (06:42→23:55)
[2017-08-15 08:00] VITALS: BP 119/65
[2017-08-15] MEDS: LEVETIRACETAM 500MG/5ML CUP GT SCH ×2 (08:17→21:05)
[2017-08-15] MEDS: METOPROLOL TARTRATE 50MG TABLET GT SCH ×2 (08:17→21:06)
[2017-08-15] MEDS: LAMOTRIGINE 100MG TABLET GT SCH ×2 (08:17→21:05)
[2017-08-15] MEDS: DOCUSATE SODIUM SUGAR FREE 100MG/10ML UDC NG SCH ×2 (08:17→21:05)
[2017-08-15] MEDS: ENOXAPARIN 40MG/0.4ML SYR SUBCUT SCH (08:18)
[2017-08-15 12:00] VITALS: BP 99/64
[2017-08-15 16:00] VITALS: BP 99/59
[2017-08-15 20:00] VITALS: BP 110/64
[2017-08-15] MEDS: FAMOTIDINE 20MG TABLET GT SCH (21:06)
[2017-08-16] VITALS (7 sets, daily range): BP systolic 100–114; BP diastolic 58–70
[2017-08-16] MEDS: IPRATROPIUM/ALBUTEROL 0.5-3(2.5)MG/3ML NEB HHN SCH ×6 (00:25→19:56)
[2017-08-16] MEDS: INSULIN LISPRO 100 UNITS/ML SUBCUT SCH ×4 (05:53→23:39)
[2017-08-16] MEDS: METOCLOPRAMIDE 10MG/10 ML UDC GT SCH ×4 (05:53→23:35)
[2017-08-16] MEDS: BLOOD SUGAR DIAGNOSTIC STRIP TEST SCH ×4 (05:53→23:39)
[2017-08-16] MEDS: PHENYTOIN 100 MG/4 ML UDC GT SCH ×3 (05:53→21:07)
[2017-08-16] MEDS: LEVETIRACETAM 500MG/5ML CUP GT SCH ×2 (08:08→21:07)
[2017-08-16] MEDS: METOPROLOL TARTRATE 50MG TABLET GT SCH ×2 (08:08→21:00)
[2017-08-16] MEDS: LAMOTRIGINE 100MG TABLET GT SCH ×2 (08:08→21:07)
[2017-08-16] MEDS: DOCUSATE SODIUM SUGAR FREE 100MG/10ML UDC NG SCH ×2 (08:08→21:08)
[2017-08-16] MEDS: ENOXAPARIN 40MG/0.4ML SYR SUBCUT SCH (10:23)
[2017-08-16] MEDS: FAMOTIDINE 20MG TABLET GT SCH (21:07)
[2017-08-17] VITALS (7 sets, daily range): BP systolic 98–123; BP diastolic 58–86
[2017-08-17] MEDS: IPRATROPIUM/ALBUTEROL 0.5-3(2.5)MG/3ML NEB HHN SCH ×5 (00:28→15:26)
[2017-08-17] MEDS: BLOOD SUGAR DIAGNOSTIC STRIP TEST SCH ×3 (05:39→17:55)
[2017-08-17] MEDS: INSULIN LISPRO 100 UNITS/ML SUBCUT SCH ×3 (05:40→17:54)
[2017-08-17] MEDS: METOCLOPRAMIDE 10MG/10 ML UDC GT SCH ×3 (05:41→17:55)
[2017-08-17] MEDS: PHENYTOIN 100 MG/4 ML UDC GT SCH ×2 (05:46→14:06)
[2017-08-17] MEDS: DOCUSATE SODIUM SUGAR FREE 100MG/10ML UDC NG SCH (08:06)
[2017-08-17] MEDS: LAMOTRIGINE 100MG TABLET GT SCH (08:07)
[2017-08-17] MEDS: METOPROLOL TARTRATE 50MG TABLET GT SCH (08:08)
[2017-08-17] MEDS: LEVETIRACETAM 500MG/5ML CUP GT SCH (08:08)
[2017-08-17] MEDS: ENOXAPARIN 40MG/0.4ML SYR SUBCUT SCH (09:41)
== END 2017-08-17 19:50 | DRG 720 ==
LOC: ER 08:44 → MICUSO 10:08 → EDBEDREQSVC 13:11 → ENRESERV 14:21 → 5EST 08-05 13:04 → 6EST 08-16 13:08
PROVIDERS: ADMIT Internal Medicine; ATTEND Internal Medicine
PROC: 5A1955Z Respiratory Ventilation, Greater than 96 Consecutive Hours (ICD-10-PCS; principal; 2017-07-28)
PROC: 0BH17EZ Insertion of Endotracheal Airway into Trachea, Via Natural or Artificial Opening (ICD-10-PCS; 2017-07-28)
PROC: 02HV33Z Insertion of Infusion Device into Superior Vena Cava, Percutaneous Approach (ICD-10-PCS; 2017-07-28)
PROC: B548ZZA Ultrasonography of Superior Vena Cava, Guidance (ICD-10-PCS; 2017-07-28)
PROC: 4A00X4Z Measurement of Central Nervous Electrical Activity, External Approach (ICD-10-PCS; 2017-07-29)
DX: A41.9 Sepsis, unspecified organism (principal); J96.01 Acute respiratory failure with hypoxia; J69.0 Pneumonitis due to inhalation of food and vomit; G82.50 Quadriplegia, unspecified; G40.411 Other generalized epilepsy and epileptic syndromes, intractable, with status epilepticus; F03.90 Unspecified dementia, unspecified severity, without behavioral disturbance, psychotic disturbance, mood disturbance, and anxiety; I48.91 Unspecified atrial fibrillation; I11.0 Hypertensive heart disease with heart failure; E11.9 Type 2 diabetes mellitus without complications; F20.9 Schizophrenia, unspecified; I50.9 Heart failure, unspecified; Z74.01 Bed confinement status; Z75.1 Person awaiting admission to adequate facility elsewhere; Z78.1 Physical restraint status; Z79.899 Other long term (current) drug therapy; Z86.73 Personal history of transient ischemic attack (TIA), and cerebral infarction without residual deficits; Z88.0 Allergy status to penicillin; Z93.1 Gastrostomy status
CPT/HCPCS: 31500; 36415; 36569; 36600; 51702; 70450; 71045; 72141; 76937; 80048; 80053; 80156; 80165; 80185; 80200; 80202; 81003; 82375; 82550; 82805; 82962; 83605; 83735; 83880; 84478; 84484; 85025; 85610; 85730; 86850; 86900; 87040; 87070; 87076; 87077; 87086; 87186; 87804; 93005; 93970; 94002; 94003; 94640; 94664; 96374; 96375; 96376; 99291; A6261; C1725; C9113; J0330; J1165; J1650; J1815; J1953; J1956; J2060; J2270; J2405; J2704; J3260; J3370; J3490; J7030; J7040; J7050; J7060; J7620; J8597